=== PATIENT | female | born 1945 | race Hispanic/Latino ===

== ENCOUNTER → 2017-02-18 | Outpatient (CLI) | payer MEDICARE ==
[~2017-02-18] MED LIST: ALBUMIN (HUMAN) 25% 200 ML IV ONE; CICL34.6 TP; FERR-82 PO; FOLI1TAB15 PO; FURO40TA5 PO; LACT10SO9 PO; LEVO125T11 PO; LISI1TAB9 PO; OMEP40CA37 PO; PREG25 PO; PROP20TA7 PO; RIFA550T PO; SPIR100T3 PO; SULF500T8 PO
[2017-02-18 11:27] LABS: BASOPHILS % (AUTO) 1.8 % (0.0-5.0); EOSINOPHILS % (AUTO) 5.6 % (0.0-8.0); HEMATOCRIT 29.5 % (36-48); LYMPHOCYTES % (AUTO) 14.9 % (21.0-51.0); MEAN CORPUSCULAR HEMOGLOBIN 29.3 pg (27.0-33.0); MEAN CORPUSCULAR HGB CONC 33.7 g/dL (32.0-36.0); MEAN CORPUSCULAR VOLUME 86.7 fL (79-99); MONOCYTES % (AUTO) 18.3 % (3.0-13.0); NEUTROPHILS % (AUTO) 59.4 % (40.0-77.0); PLATELET COUNT (AUTO) 89 K/uL (130-400); RED CELL DISTRIBUTION WIDTH 16.9 % (11.0-15.5); WHITE BLOOD COUNT (AUTO) 4.4 K/uL (4.8-10.8)
[2017-02-18 11:35] LABS: INR 1.13 (0.85-1.15); PROTHROMBIN TIME 11.8 SEC (9.6-11.6)
[2017-02-18 11:39] LABS: ALBUMIN 2.5 g/dL (3.5-5.0); BILIRUBIN,TOTAL 0.9 mg/dL (0.2-1.0); CREATININE 1.8 mg/dL (0.5-1.5); POTASSIUM 5.2 mmol/L (3.5-5.1); TOTAL PROTEIN, SERUM 7.4 g/dL (6.0-8.3)
[2017-02-18 17:36] LABS: APPEARANCE BODY FLUID CLEAR (CLEAR); SPECIMENTYPE,BODY FLUID ASCITES
[2017-02-18 17:37] LABS: BODY FLUID RBC 58 /cu. mm.; BODY FLUID WBC 37 /cu. mm.; COLOR,BODY FLUID YELLOW (LT YELLOW); TOTAL VOLUME,BODY FLUID 9000 mL
[2017-02-18 18:59] LABS: BF LYMPHOCYTE 58 %; BF MESOTHELIAL 15 %
== END | disposition home or self-care (01) ==
LOC: RAH 10:42
PROVIDERS: ATTEND Internal Medicine Gastroenterology
DX: R18.8 Other ascites (principal); K72.90 Hepatic failure, unspecified without coma; K74.60 Unspecified cirrhosis of liver; I10 Essential (primary) hypertension; E03.9 Hypothyroidism, unspecified; E78.5 Hyperlipidemia, unspecified; M06.9 Rheumatoid arthritis, unspecified; M19.90 Unspecified osteoarthritis, unspecified site
CPT/HCPCS: 36415; 49083; 80053; 85025; 85610; 87071; 87205; 88108; 88305; 89051; P9046

== ENCOUNTER → 2017-02-22 | Outpatient (CLI) | payer MEDICARE ==
[~2017-02-22] MED LIST changes: -ALBUMIN (HUMAN) 25% 200 ML IV ONE
== END | disposition home or self-care (01) ==
LOC: RAH 08:29
PROVIDERS: ATTEND Internal Medicine Gastroenterology
DX: K74.60 Unspecified cirrhosis of liver (principal); K76.6 Portal hypertension; R18.8 Other ascites
CPT/HCPCS: 76700; 93975

== ENCOUNTER → 2017-02-24 | Outpatient (CLI) | payer MEDICARE ==
[~2017-02-24] MED LIST changes: +ALBUMIN (HUMAN) 25% 200 ML IV SCH
[2017-02-24 14:51] LABS: APPEARANCE BODY FLUID SLIGHTLY CLOUDY (CLEAR); COLOR,BODY FLUID LT YELLOW (LT YELLOW); SPECIMENTYPE,BODY FLUID ASCITES
[2017-02-24 14:52] LABS: BODY FLUID RBC 100 /cu. mm.; BODY FLUID WBC 104 /cu. mm.; TOTAL VOLUME,BODY FLUID 3000 mL
[2017-02-24 14:54] LABS: BF LYMPHOCYTE 30 %; BF MESOTHELIAL 2 %; BF MONOCYTE 55 %
== END ==
LOC: RAH 09:57
PROVIDERS: ATTEND Internal Medicine Gastroenterology
DX: R18.8 Other ascites (principal)
CPT/HCPCS: 49083; 87071; 87205; 89051; P9046

== ENCOUNTER → 2017-03-03 | Outpatient (CLI) | payer MEDICARE ==
[~2017-03-03] MED LIST changes: +ALBUMIN (HUMAN) 25% 200 ML IV ONE; -ALBUMIN (HUMAN) 25% 200 ML IV SCH
[2017-03-03 14:07] LABS: APPEARANCE BODY FLUID CLEAR (CLEAR); COLOR,BODY FLUID YELLOW (LT YELLOW); SPECIMENTYPE,BODY FLUID ASCITES; TOTAL VOLUME,BODY FLUID 4500 mL
[2017-03-03 14:08] LABS: BODY FLUID RBC 895 /cu. mm.; BODY FLUID WBC 81 /cu. mm.
[2017-03-03 14:11] LABS: BF LYMPHOCYTE 46 %; BF MESOTHELIAL 32 %
== END | disposition home or self-care (01) ==
LOC: RAH 09:26
PROVIDERS: ATTEND Internal Medicine Gastroenterology
DX: R18.8 Other ascites (principal)
CPT/HCPCS: 49083; 87071; 87205; 88108; 88305; 89051; P9046

== ENCOUNTER → 2017-03-17 | Outpatient (CLI) | payer MEDICARE ==
[~2017-03-17] MED LIST changes: -ALBUMIN (HUMAN) 25% 200 ML IV ONE; +ALBUMIN (HUMAN) 25% 200 ML IV SCH
[2017-03-17 08:54] LABS: HEMATOCRIT 28.5 % (36-48); MEAN CORPUSCULAR HEMOGLOBIN 30.6 pg (27.0-33.0); MEAN CORPUSCULAR HGB CONC 34.6 g/dL (32.0-36.0); MEAN CORPUSCULAR VOLUME 88.5 fL (79-99); PLATELET COUNT (AUTO) 70 K/uL (130-400); RED BLOOD CELL COUNT(AUTO) 3.22 MIL/uL (4.00-5.50); RED CELL DISTRIBUTION WIDTH 18.7 % (11.0-15.5)
[2017-03-17 09:06] LABS: INR 1.13 (0.85-1.15); PROTHROMBIN TIME 11.8 SEC (9.6-11.6)
[2017-03-17 09:09] LABS: ALBUMIN 2.8 g/dL (3.5-5.0); BILIRUBIN,TOTAL 0.8 mg/dL (0.2-1.0); CREATININE 2.4 mg/dL (0.5-1.5); TOTAL PROTEIN, SERUM 7.5 g/dL (6.0-8.3)
[2017-03-17 09:10] LABS: BASOPHILS % (MANUAL) 1 % (0-2); EOSINOPHILS % (MANUAL) 7 % (1-6); LYMPHOCYTES % (MANUAL) 19 % (22-44); MAN.DIFF COMMENT-IMPRESSION MANUAL DIFFERENTIAL; MONOCYTES % (MANUAL) 17 % (2-9); SEGMENTED NEUTROPHILS % 56 % (40-70)
[2017-03-17 13:10] LABS: APPEARANCE BODY FLUID CLEAR (CLEAR); COLOR,BODY FLUID YELLOW (LT YELLOW); SPECIMENTYPE,BODY FLUID ASCITES
[2017-03-17 13:17] LABS: BODY FLUID RBC 769 /cu. mm.; BODY FLUID WBC 115 /cu. mm.; TOTAL VOLUME,BODY FLUID 5000 mL
[2017-03-17 13:46] LABS: BF EOSINOPHIL 1 %; BF LYMPHOCYTE 20 %; BF MESOTHELIAL 59 %; BF MONOCYTE 13 %
== END | disposition home or self-care (01) ==
LOC: RAH 08:15
PROVIDERS: ATTEND Internal Medicine Gastroenterology
DX: R18.8 Other ascites (principal)
CPT/HCPCS: 36415; 49083; 80053; 85025; 85610; 87071; 87205; 88108; 88305; 89051; P9046

== ENCOUNTER → 2017-04-13 | Outpatient (CLI) | payer MEDICARE ==
[~2017-04-13] MED LIST changes: -SPIR100T3 PO; +SPIR100T5 PO
[2017-04-13 09:11] LABS: BASOPHILS % (AUTO) 0.9 % (0.0-5.0); EOSINOPHILS % (AUTO) 2.8 % (0.0-8.0); LYMPHOCYTES % (AUTO) 11.8 % (21.0-51.0); MEAN CORPUSCULAR HEMOGLOBIN 30.7 pg (27.0-33.0); MEAN CORPUSCULAR HGB CONC 34.4 g/dL (32.0-36.0); MEAN CORPUSCULAR VOLUME 89.2 fL (79-99); MONOCYTES % (AUTO) 15.7 % (3.0-13.0); NEUTROPHILS % (AUTO) 68.8 % (40.0-77.0); PLATELET COUNT (AUTO) 81 K/uL (130-400); RED BLOOD CELL COUNT(AUTO) 3.14 MIL/uL (4.00-5.50); RED CELL DISTRIBUTION WIDTH 18.2 % (11.0-15.5); WHITE BLOOD COUNT (AUTO) 6.1 K/uL (4.8-10.8)
[2017-04-13 09:24] LABS: ALBUMIN 2.8 g/dL (3.5-5.0); BILIRUBIN,TOTAL 1.2 mg/dL (0.2-1.0); CREATININE 2.1 mg/dL (0.5-1.5); POTASSIUM 4.3 mmol/L (3.5-5.1); TOTAL PROTEIN, SERUM 8.1 g/dL (6.0-8.3)
[2017-04-13 09:25] LABS: INR 1.15 (0.85-1.15)
[2017-04-13 12:48] LABS: APPEARANCE BODY FLUID CLEAR (CLEAR); COLOR,BODY FLUID YELLOW (LT YELLOW); SPECIMENTYPE,BODY FLUID ASCITES; TOTAL VOLUME,BODY FLUID 7000 mL
[2017-04-13 12:49] LABS: BODY FLUID RBC 158 /cu. mm.; BODY FLUID WBC 128 /cu. mm.
[2017-04-13 13:10] LABS: BF BASOPHIL 1 %; BF LYMPHOCYTE 15 %; BF MESOTHELIAL 58 %; BF MONOCYTE 16 %
== END | disposition home or self-care (01) ==
LOC: RAH 08:55
PROVIDERS: ATTEND Internal Medicine Gastroenterology
DX: R18.8 Other ascites (principal)
CPT/HCPCS: 36415; 49083; 80053; 85025; 85610; 87071; 87205; 88108; 88305; 89051; P9046

== ENCOUNTER → 2017-05-05 | Outpatient (CLI) | payer MEDICARE ==
[~2017-05-05] MED LIST changes: +SPIR100T3 PO; -SPIR100T5 PO
[2017-05-05 13:10] LABS: APPEARANCE BODY FLUID CLEAR (CLEAR); BODY FLUID WBC 101 /cu. mm.; COLOR,BODY FLUID YELLOW (LT YELLOW); SPECIMENTYPE,BODY FLUID ASCITES
[2017-05-05 13:11] LABS: BODY FLUID RBC 204 /cu. mm.
[2017-05-05 13:13] LABS: BF LYMPHOCYTE 22 %; BF MESOTHELIAL 54 %; BF MONOCYTE 23 %
[2017-05-05 13:17] LABS: TOTAL VOLUME,BODY FLUID 6000 mL
== END | disposition home or self-care (01) ==
LOC: RAH 07:42
PROVIDERS: ATTEND Internal Medicine Gastroenterology
DX: R18.8 Other ascites (principal)
CPT/HCPCS: 49083; 87071; 87205; 89051; P9046

== ENCOUNTER 2017-05-09 00:49 | Emergency (ER) | payer MEDICARE ==
[~2017-05-09 00:49] MED LIST changes: -ALBUMIN (HUMAN) 25% 200 ML IV SCH; -FOLI1TAB15 PO; -LACT10SO9 PO; -PROP20TA7 PO
[2017-05-09] MEDS ORDERED: TRAMADOL HCL 50 MG TABLET ONE (03:19)
== END 2017-05-09 03:31 | disposition home or self-care (01) ==
LOC: EDH 00:49
DX: S80.02XA Contusion of left knee, initial encounter (principal); S80.01XA Contusion of right knee, initial encounter; M19.90 Unspecified osteoarthritis, unspecified site; I10 Essential (primary) hypertension; K74.60 Unspecified cirrhosis of liver; W18.39XA Other fall on same level, initial encounter; Z79.899 Other long term (current) drug therapy; Y93.89 Activity, other specified; Y92.098 Other place in other non-institutional residence as the place of occurrence of the external cause; Y99.8 Other external cause status
CPT/HCPCS: 73562

== ENCOUNTER → 2017-05-27 | Outpatient (CLI) | payer MEDICARE ==
[~2017-05-27] MED LIST changes: +ALBUMIN (HUMAN) 25% 200 ML IV SCH; +FOLI1TAB15 PO; +LACT10SO9 PO; +ONDANSETRON HCL MDV 20ML 2 MG/ML VIAL ONE; +PROP20TA7 PO; -SPIR100T3 PO; +SPIR100T5 PO
[2017-05-27 09:22] LABS: BASOPHILS % (AUTO) 1.6 % (0.0-5.0); EOSINOPHILS % (AUTO) 4.2 % (0.0-8.0); LYMPHOCYTES % (AUTO) 11.9 % (21.0-51.0); MEAN CORPUSCULAR HEMOGLOBIN 31.5 pg (27.0-33.0); MEAN CORPUSCULAR HGB CONC 34.9 g/dL (32.0-36.0); MEAN CORPUSCULAR VOLUME 90.3 fL (79-99); MONOCYTES % (AUTO) 14.4 % (3.0-13.0); NEUTROPHILS % (AUTO) 67.9 % (40.0-77.0); NUCLEATED RED BLOOD CELLS 0.1 % (0.0-0.19); PLATELET COUNT (AUTO) 87 K/uL (130-400); RED BLOOD CELL COUNT(AUTO) 2.99 MIL/uL (4.00-5.50); RED CELL DISTRIBUTION WIDTH 15.7 % (11.0-15.5); WHITE BLOOD COUNT (AUTO) 4.5 K/uL (4.8-10.8)
[2017-05-27 09:36] LABS: INR 1.13 (0.85-1.15); PROTHROMBIN TIME 11.8 SEC (9.6-11.6)
[2017-05-27 10:09] LABS: ALBUMIN 2.6 g/dL (3.5-5.0); BILIRUBIN,TOTAL 0.8 mg/dL (0.2-1.0); CREATININE 2.1 mg/dL (0.5-1.5); POTASSIUM 4.4 mmol/L (3.5-5.1); TOTAL PROTEIN, SERUM 7.7 g/dL (6.0-8.3)
[2017-05-27 13:09] LABS: APPEARANCE BODY FLUID SLIGHTLY CLOUDY (CLEAR); COLOR,BODY FLUID LT YELLOW (LT YELLOW); SPECIMENTYPE,BODY FLUID ASCITES; TOTAL VOLUME,BODY FLUID 7500 mL
[2017-05-27 13:10] LABS: BODY FLUID WBC 150 /cu. mm.
[2017-05-27 13:11] LABS: BODY FLUID RBC 150 /cu. mm.
[2017-05-27 13:14] LABS: BF LYMPHOCYTE 40 %; BF MESOTHELIAL 1 %; BF MONOCYTE 2 %
== END | disposition home or self-care (01) ==
LOC: RAH 08:43
PROVIDERS: ATTEND Internal Medicine Gastroenterology
DX: R18.8 Other ascites (principal)
CPT/HCPCS: 36415; 49083; 80053; 85025; 85610; 87071; 87205; 88108; 88305; 89051; P9046

== ENCOUNTER → 2017-06-16 | Outpatient (CLI) | payer MEDICARE ==
[~2017-06-16] MED LIST changes: -ALBUMIN (HUMAN) 25% 200 ML IV SCH; -ONDANSETRON HCL MDV 20ML 2 MG/ML VIAL ONE
== END | disposition home or self-care (01) ==
LOC: RAH 12:29
PROVIDERS: ATTEND Internal Medicine Gastroenterology
DX: M47.895 Other spondylosis, thoracolumbar region (principal); M41.84 Other forms of scoliosis, thoracic region; R18.8 Other ascites
CPT/HCPCS: 71046

== ENCOUNTER 2017-06-30 20:55 | Inpatient (IN) | payer MEDICARE ==
[~2017-06-30] VITALS: Ht 160 cm; Wt 74.3 kg
[~2017-06-30 20:55] MED LIST changes: -FOLI1TAB15 PO; -LACT10SO9 PO; -PROP20TA7 PO
[2017-06-30 21:26] LABS: BASOPHILS % (AUTO) 1.7 % (0.0-5.0); HEMATOCRIT 30.6 % (36-48); LYMPHOCYTES % (AUTO) 19.9 % (21.0-51.0); MEAN CORPUSCULAR HEMOGLOBIN 29.6 pg (27.0-33.0); MEAN CORPUSCULAR HGB CONC 34.1 g/dL (32.0-36.0); MEAN CORPUSCULAR VOLUME 86.7 fL (79-99); MONOCYTES % (AUTO) 11.7 % (3.0-13.0); NEUTROPHILS % (AUTO) 63.7 % (40.0-77.0); PLATELET COUNT (AUTO) 186 K/uL (130-400); RED BLOOD CELL COUNT(AUTO) 3.53 MIL/uL (4.00-5.50); RED CELL DISTRIBUTION WIDTH 14.9 % (11.0-15.5); WHITE BLOOD COUNT (AUTO) 5.3 K/uL (4.8-10.8)
[2017-06-30 21:33] LABS: CREATININE 3.7 mg/dL (0.5-1.5); POTASSIUM 4.2 mmol/L (3.5-5.1)
[2017-06-30 21:37] LABS: ALBUMIN 2.4 g/dL (3.5-5.0); BILIRUBIN,TOTAL 0.8 mg/dL (0.2-1.0); TOTAL PROTEIN, SERUM 7.6 g/dL (6.0-8.3)
[2017-06-30] MEDS ORDERED: LACTULOSE 20 GM/30 ML UDCUP ONE (21:54)
[2017-06-30 22:22] LABS: INR 1.14 (0.85-1.15); PARTIAL THROMBOPLASTIN TIME 30.5 SEC (26.3-35.5); PROTHROMBIN TIME 11.9 SEC (9.6-11.6)
[2017-06-30 22:27] LABS: CREATINE KINASE MB 0.6 ng/mL (0.5-3.6)
[2017-06-30 23:16] LABS: BILIRUBIN,URINE Negative (NEGATIVE); GLUCOSE, URINE (UA) Negative (NEGATIVE); KETONES,URINE Negative (NEGATIVE); LEUKOCYTE ESTERASE ,URINE Large (NEGATIVE); NITRATE,URINE Negative (NEGATIVE); OCCULT BLOOD,URINE Small (NEGATIVE); PROTEIN,URINE Negative (NEGATIVE); UROBILINOGEN,URINE 0.2 mg/dL (0.2-1.0)
[2017-06-30 23:17] LABS: APPEARANCE,URINE CLOUDY (CLEAR); COLOR,URINE YELLOW (YELLOW)
[2017-06-30] MEDS ORDERED: SODIUM CHLORIDE 0.9% 250 ML IV ONE (23:19)
[2017-06-30] MEDS ORDERED: ONDANSETRON HCL MDV 20ML 2 MG/ML VIAL ONE (23:19)
[2017-06-30 23:24] LABS: BACTERIA,URINE Many /HPF (None Seen); WBC,URINE 51-100 /HPF (0-1)
[2017-06-30 23:25] LABS: AMORPHOUS SEDIMENT,UR Moderate /LPF (None Seen)
[2017-06-30] MEDS: SODIUM CHLORIDE 0.9% 1000ML 1,000 ML IV SCH (23:30)
[2017-06-30 23:31] LABS: AMPHET/METH SCREEN,URINE NEGATIVE (NEGATIVE); BARBITURATE SCREEN, URINE NEGATIVE (NEGATIVE); BENZODIAZEPINES SCREEN,URINE NEGATIVE (NEGATIVE); CANNABINOID SCREEN,URINE NEGATIVE (NEGATIVE); COCAINE SCREEN,URINE NEGATIVE (NEGATIVE); OPIATE SCREEN,URINE NEGATIVE (NEGATIVE); PHENCYCLIDINE SCREEN,URINE NEGATIVE (NEGATIVE)
[2017-07-01] VITALS (37 sets, daily range): BP systolic 72–140; BP diastolic 31–96
[2017-07-01] MEDS ORDERED: CEFTRIAXONE 1GM/D5W 50ML 50 ML IV SCH (00:30)
[2017-07-01] MEDS: HEPARIN SODIUM 5000UNIT/ML 1ML VIAL SQ SCH ×2 (00:30→15:43)
[2017-07-01] MEDS ORDERED: LIDOCAINE HCL-MPF 1% 2ML VIAL IVP PRN (00:30)
[2017-07-01] MEDS ORDERED: POTASSIUM CHLORIDE 20MEQ/100ML 100 ML IV PRN (00:30)
[2017-07-01] MEDS ORDERED: POTASSIUM CHLORIDE 10% ELIXIR 20 MEQ/15 ML UDCUP PO PRN (00:30)
[2017-07-01] MEDS: CEFTRIAXONE SODIUM 1 GM IVP SCH (02:00)
[2017-07-01] MEDS ORDERED: LACTULOSE 20 GM/30 ML UDCUP ONE (04:48)
[2017-07-01] MEDS ORDERED: HEPARIN SODIUM 5000UNIT/ML 1ML VIAL ONE (04:48)
[2017-07-01] MEDS: LACTULOSE 20 GM/30 ML UDCUP PO SCH ×4 (06:00→18:36)
[2017-07-01 06:07] LABS: BASOPHILS % (AUTO) 1.3 % (0.0-5.0); EOSINOPHILS % (AUTO) 1.3 % (0.0-8.0); HEMATOCRIT 29.1 % (36-48); LYMPHOCYTES % (AUTO) 19.2 % (21.0-51.0); MEAN CORPUSCULAR HEMOGLOBIN 30.5 pg (27.0-33.0); MEAN CORPUSCULAR VOLUME 87.2 fL (79-99); NEUTROPHILS % (AUTO) 66.2 % (40.0-77.0); PLATELET COUNT (AUTO) 142 K/uL (130-400); RED BLOOD CELL COUNT(AUTO) 3.34 MIL/uL (4.00-5.50); RED CELL DISTRIBUTION WIDTH 15.2 % (11.0-15.5); WHITE BLOOD COUNT (AUTO) 5.7 K/uL (4.8-10.8)
[2017-07-01 06:27] LABS: ALBUMIN 2.2 g/dL (3.5-5.0); BILIRUBIN,TOTAL 0.8 mg/dL (0.2-1.0); POTASSIUM 4.2 mmol/L (3.5-5.1); TOTAL PROTEIN, SERUM 6.9 g/dL (6.0-8.3)
[2017-07-01] MEDS ORDERED: CEFTRIAXONE SODIUM 1 GM ONE (07:36)
[2017-07-01] MEDS ORDERED: SODIUM CHLORIDE 0.9% 1000ML 1,000 ML IV ONE (07:36)
[2017-07-01] MEDS ORDERED: FAMOTIDINE 20MG TAB 20 MG TAB ONE (07:36)
[2017-07-01] MEDS ORDERED: SODIUM CHLORIDE 0.9% 50 ML IV ONE (07:37)
[2017-07-01] MEDS ORDERED: NOREPINEPHRINE BITARTRATE 1 MG/1 ML ML IV ONE (08:53)
[2017-07-01] MEDS ORDERED: SODIUM CHLORIDE 0.9% 250 ML IV ONE (08:53)
[2017-07-01] MEDS: FAMOTIDINE 20MG TAB 20 MG TAB PO SCH (09:00)
[2017-07-01] MEDS ORDERED: PROP20TA7 PO (11:31)
[2017-07-01] MEDS ORDERED: LACT10SO9 PO (11:31)
[2017-07-01] MEDS ORDERED: FOLI1TAB15 PO (11:31)
[2017-07-01] MEDS: SODIUM CHLORIDE 0.9% 1000ML 1,000 ML IV SCH ×2 (13:46→20:50)
[2017-07-01] MEDS ORDERED: NOREPINEPHRINE 4MG/NS 250ML 250 ML IV SCH ×2 (14:15→16:00)
[2017-07-01] MEDS: MIDODRINE HCL 5 MG TABLET PO SCH ×2 (15:26→20:13)
[2017-07-01 15:59] LABS: CREATININE,URINE RANDOM 126 mg/dL (30-135); SODIUM,URINE RANDOM 21 mmol/l (40-220)
[2017-07-01] MEDS ORDERED: LACTATED RINGERS 1000ML IV PRN (16:00)
[2017-07-01] MEDS ORDERED: ONDANSETRON HCL MDV 20ML 2 MG/ML VIAL ONE (20:23)
[2017-07-01] MEDS: ONDANSETRON HCL 4 MG/2 ML VIAL IVP PRN (20:24)
[2017-07-01] MEDS: ALBUMIN (HUMAN) 25% 50 ML IV SCH (22:13)
[2017-07-02] VITALS (44 sets, daily range): BP systolic 78–159; BP diastolic 37–80
[2017-07-02] MEDS: HEPARIN SODIUM 5000UNIT/ML 1ML VIAL SQ SCH ×2 (00:25→12:30)
[2017-07-02] MEDS: LACTULOSE 20 GM/30 ML UDCUP PO SCH ×4 (00:26→18:06)
[2017-07-02] MEDS: CEFTRIAXONE SODIUM 1 GM IVP SCH (02:40)
[2017-07-02 03:45] LABS: BASOPHILS % (AUTO) 1.4 % (0.0-5.0); EOSINOPHILS % (AUTO) 2.7 % (0.0-8.0); HEMATOCRIT 28.7 % (36-48); LYMPHOCYTES % (AUTO) 17.4 % (21.0-51.0); MEAN CORPUSCULAR HEMOGLOBIN 29.4 pg (27.0-33.0); MEAN CORPUSCULAR HGB CONC 33.7 g/dL (32.0-36.0); MEAN CORPUSCULAR VOLUME 87.2 fL (79-99); MONOCYTES % (AUTO) 11.6 % (3.0-13.0); NEUTROPHILS % (AUTO) 66.9 % (40.0-77.0); NUCLEATED RED BLOOD CELLS 0.1 % (0.0-0.19); PLATELET COUNT (AUTO) 139 K/uL (130-400); RED BLOOD CELL COUNT(AUTO) 3.29 MIL/uL (4.00-5.50); RED CELL DISTRIBUTION WIDTH 14.8 % (11.0-15.5); WHITE BLOOD COUNT (AUTO) 5.8 K/uL (4.8-10.8)
[2017-07-02 04:17] LABS: ALBUMIN 2.3 g/dL (3.5-5.0); BILIRUBIN,TOTAL 0.7 mg/dL (0.2-1.0); CREATININE 3.7 mg/dL (0.5-1.5); MAGNESIUM 2.4 mg/dL (1.80-2.40); PHOSPHORUS 4.7 mg/dL (2.5-4.9); POTASSIUM 3.8 mmol/L (3.5-5.1); THYROID STIMULATING HORMONE 69.23 uIU/mL (0.36-3.74); TOTAL PROTEIN, SERUM 6.6 g/dL (6.0-8.3); URIC ACID 12.6 mg/dL (2.6-7.2)
[2017-07-02] MEDS: ALBUMIN (HUMAN) 25% 50 ML IV SCH ×3 (05:55→21:30)
[2017-07-02] MEDS ORDERED: ONDANSETRON HCL MDV 20ML 2 MG/ML VIAL ONE ×2 (06:04→14:08)
[2017-07-02] MEDS: FAMOTIDINE 20MG TAB 20 MG TAB PO SCH (08:42)
[2017-07-02] MEDS: MIDODRINE HCL 5 MG TABLET PO SCH ×3 (08:46→21:27)
[2017-07-02] MEDS: FOLIC ACID/VITAMIN B COMP W-C 1 MG CAPSULE PO SCH (08:46)
[2017-07-02] MEDS: THIAMINE HCL 100 MG/ML 2ML VIAL IVP SCH (08:47)
[2017-07-02] MEDS: SODIUM CHLORIDE 0.9% 1000ML 1,000 ML IV SCH ×2 (08:55→23:33)
[2017-07-02 11:34] LABS: INR 1.27 (0.85-1.15); PROTHROMBIN TIME 13.3 SEC (9.6-11.6)
[2017-07-02] MEDS: ONDANSETRON HCL 4 MG/2 ML VIAL IVP PRN (14:45)
[2017-07-02 15:24] LABS: APPEARANCE BODY FLUID CLEAR (CLEAR); SPECIMENTYPE,BODY FLUID PARACENTESIS
[2017-07-02 15:25] LABS: COLOR,BODY FLUID LT YELLOW (LT YELLOW); TOTAL VOLUME,BODY FLUID 8000 mL
[2017-07-02 15:38] LABS: BODY FLUID RBC 200 /cu. mm.; BODY FLUID WBC 49 /cu. mm.
[2017-07-02 15:42] LABS: ALBUMIN,BODY FLUID < 0.6 g/dL
[2017-07-02 15:58] LABS: BF LYMPHOCYTE 26 %; BF MONOCYTE 67 %
[2017-07-02] MEDS: RIFAXIMIN 550 MG TABLET PO SCH (21:27)
[2017-07-03] VITALS (21 sets, daily range): BP systolic 86–133; BP diastolic 40–75
[2017-07-03] MEDS: LACTULOSE 20 GM/30 ML UDCUP PO SCH ×4 (00:01→18:00)
[2017-07-03] MEDS: HEPARIN SODIUM 5000UNIT/ML 1ML VIAL SQ SCH ×2 (00:03→12:27)
[2017-07-03] MEDS: CEFTRIAXONE SODIUM 1 GM IVP SCH (02:22)
[2017-07-03 05:39] LABS: BASOPHILS % (AUTO) 1.1 % (0.0-5.0); LYMPHOCYTES % (AUTO) 10.7 % (21.0-51.0); MEAN CORPUSCULAR HEMOGLOBIN 30.6 pg (27.0-33.0); MEAN CORPUSCULAR HGB CONC 35.3 g/dL (32.0-36.0); MEAN CORPUSCULAR VOLUME 86.8 fL (79-99); MONOCYTES % (AUTO) 10.4 % (3.0-13.0); NEUTROPHILS % (AUTO) 75.8 % (40.0-77.0); PLATELET COUNT (AUTO) 116 K/uL (130-400); RED BLOOD CELL COUNT(AUTO) 3.23 MIL/uL (4.00-5.50); RED CELL DISTRIBUTION WIDTH 15.2 % (11.0-15.5); WHITE BLOOD COUNT (AUTO) 6.7 K/uL (4.8-10.8)
[2017-07-03 05:53] LABS: ALBUMIN 2.9 g/dL (3.5-5.0); BILIRUBIN,TOTAL 0.7 mg/dL (0.2-1.0); CREATININE 3.1 mg/dL (0.5-1.5); POTASSIUM 3.7 mmol/L (3.5-5.1); TOTAL PROTEIN, SERUM 6.9 g/dL (6.0-8.3)
[2017-07-03] MEDS: ALBUMIN (HUMAN) 25% 50 ML IV SCH ×2 (06:26→14:12)
[2017-07-03] MEDS: FAMOTIDINE 20MG TAB 20 MG TAB PO SCH (08:17)
[2017-07-03] MEDS: FOLIC ACID/VITAMIN B COMP W-C 1 MG CAPSULE PO SCH (08:17)
[2017-07-03] MEDS: THIAMINE HCL 100 MG/ML 2ML VIAL IVP SCH (08:17)
[2017-07-03] MEDS: FERROUS SULFATE 325 MG TABLET.DR PO SCH (08:17)
[2017-07-03] MEDS: MIDODRINE HCL 5 MG TABLET PO SCH ×3 (08:17→21:19)
[2017-07-03] MEDS: LEVOTHYROXINE 150 MCG TABLET PO SCH (08:17)
[2017-07-03] MEDS: RIFAXIMIN 550 MG TABLET PO SCH ×2 (09:36→21:19)
[2017-07-03] MEDS ORDERED: MEROPENEM 500MG+NS 50ML 50 ML IV SCH (14:00)
[2017-07-03] MEDS: MEROPENEM 500 MG VIAL IVP SCH ×2 (14:12→21:19)
[2017-07-03] MEDS: SODIUM CHLORIDE 0.9% 1000ML 1,000 ML IV SCH (14:12)
[2017-07-04] VITALS (11 sets, daily range): BP systolic 93–158; BP diastolic 38–70
[2017-07-04] MEDS: LACTULOSE 20 GM/30 ML UDCUP PO SCH ×4 (00:58→18:19)
[2017-07-04] MEDS: CEFTRIAXONE SODIUM 1 GM IVP SCH (00:59)
[2017-07-04] MEDS: HEPARIN SODIUM 5000UNIT/ML 1ML VIAL SQ SCH ×2 (01:00→12:13)
[2017-07-04] MEDS: SODIUM CHLORIDE 0.9% 1000ML 1,000 ML IV SCH ×2 (02:34→20:50)
[2017-07-04 05:33] LABS: HEMATOCRIT 25.5 % (36-48); MEAN CORPUSCULAR HEMOGLOBIN 29.6 pg (27.0-33.0); MEAN CORPUSCULAR HGB CONC 33.8 g/dL (32.0-36.0); MEAN CORPUSCULAR VOLUME 87.6 fL (79-99); PLATELET COUNT (AUTO) 66 K/uL (130-400); RED BLOOD CELL COUNT(AUTO) 2.92 MIL/uL (4.00-5.50); RED CELL DISTRIBUTION WIDTH 15.1 % (11.0-15.5); WHITE BLOOD COUNT (AUTO) 3.4 K/uL (4.8-10.8)
[2017-07-04 05:39] LABS: CREATININE 2.5 mg/dL (0.5-1.5); POTASSIUM 3.9 mmol/L (3.5-5.1)
[2017-07-04] MEDS: LEVOTHYROXINE 150 MCG TABLET PO SCH (06:37)
[2017-07-04] MEDS: MEROPENEM 500 MG VIAL IVP SCH ×3 (06:37→21:15)
[2017-07-04] MEDS: THIAMINE HCL 100 MG/ML 2ML VIAL IVP SCH (08:41)
[2017-07-04] MEDS: FAMOTIDINE 20MG TAB 20 MG TAB PO SCH (08:42)
[2017-07-04] MEDS: FERROUS SULFATE 325 MG TABLET.DR PO SCH (08:42)
[2017-07-04] MEDS: FOLIC ACID/VITAMIN B COMP W-C 1 MG CAPSULE PO SCH (08:42)
[2017-07-04] MEDS: MIDODRINE HCL 5 MG TABLET PO SCH ×3 (08:42→21:15)
[2017-07-04] MEDS: RIFAXIMIN 550 MG TABLET PO SCH ×2 (09:39→21:00)
[2017-07-04] MEDS: SODIUM BICARBONATE 650 MG TAB PO SCH (21:15)
[2017-07-05] MEDS: LACTULOSE 20 GM/30 ML UDCUP PO SCH ×5 (00:01→23:53)
[2017-07-05] MEDS: CEFTRIAXONE SODIUM 1 GM IVP SCH ×2 (00:02→23:53)
[2017-07-05] MEDS: HEPARIN SODIUM 5000UNIT/ML 1ML VIAL SQ SCH (00:07)
[2017-07-05 00:32] VITALS: BP 124/63
[2017-07-05 04:07] VITALS: BP 119/59
[2017-07-05] MEDS: LEVOTHYROXINE 150 MCG TABLET PO SCH (05:27)
[2017-07-05] MEDS: MEROPENEM 500 MG VIAL IVP SCH (05:27)
[2017-07-05 05:46] LABS: BASOPHILS % (AUTO) 1.1 % (0.0-5.0); EOSINOPHILS % (AUTO) 2.3 % (0.0-8.0); HEMATOCRIT 24.3 % (36-48); LYMPHOCYTES % (AUTO) 12.5 % (21.0-51.0); MEAN CORPUSCULAR HEMOGLOBIN 30.6 pg (27.0-33.0); MEAN CORPUSCULAR HGB CONC 34.8 g/dL (32.0-36.0); MEAN CORPUSCULAR VOLUME 87.9 fL (79-99); MONOCYTES % (AUTO) 13.1 % (3.0-13.0); NUCLEATED RED BLOOD CELLS 0.1 % (0.0-0.19); PLATELET COUNT (AUTO) 67 K/uL (130-400); RED BLOOD CELL COUNT(AUTO) 2.76 MIL/uL (4.00-5.50); RED CELL DISTRIBUTION WIDTH 15.5 % (11.0-15.5)
[2017-07-05 06:03] LABS: CREATININE 1.9 mg/dL (0.5-1.5); POTASSIUM 3.7 mmol/L (3.5-5.1)
[2017-07-05 06:35] LABS: % IRON SATURATION 52.7 % (22-44)
[2017-07-05 07:47] LABS: BASOPHILS % (MANUAL) 2 % (0-2); EOSINOPHILS % (MANUAL) 3 % (1-6); LYMPHOCYTES % (MANUAL) 8 % (22-44); MAN.DIFF COMMENT-IMPRESSION MANUAL DIFFERENTIAL; MONOCYTES % (MANUAL) 6 % (2-9); PLATELET MORPHOLOGY COMMENT DECREASED; SEGMENTED NEUTROPHILS % 81 % (40-70)
[2017-07-05 09:25] VITALS: BP 127/61
[2017-07-05] MEDS: SODIUM CHLORIDE 0.9% 1000ML 1,000 ML IV SCH ×2 (10:51→23:53)
[2017-07-05] MEDS: MIDODRINE HCL 5 MG TABLET PO SCH ×3 (10:52→20:22)
[2017-07-05] MEDS: FERROUS SULFATE 325 MG TABLET.DR PO SCH (10:52)
[2017-07-05] MEDS: FOLIC ACID/VITAMIN B COMP W-C 1 MG CAPSULE PO SCH (10:52)
[2017-07-05] MEDS: RIFAXIMIN 550 MG TABLET PO SCH ×2 (10:52→20:23)
[2017-07-05] MEDS: THIAMINE HCL 100 MG/ML 2ML VIAL IVP SCH (10:52)
[2017-07-05] MEDS: SODIUM BICARBONATE 650 MG TAB PO SCH ×2 (10:52→20:22)
[2017-07-05] MEDS: FAMOTIDINE 20MG TAB 20 MG TAB PO SCH (10:52)
[2017-07-05 12:39] VITALS: BP 137/80
[2017-07-05 16:00] VITALS: BP 111/73
[2017-07-05 20:00] VITALS: BP 117/68
[2017-07-06] VITALS: BP 152/80
[2017-07-06 04:00] VITALS: BP 133/66
[2017-07-06] MEDS: LACTULOSE 20 GM/30 ML UDCUP PO SCH ×5 (05:29→22:06)
[2017-07-06] MEDS: LEVOTHYROXINE 150 MCG TABLET PO SCH (05:29)
[2017-07-06 05:50] LABS: BASOPHILS % (AUTO) 1.1 % (0.0-5.0); EOSINOPHILS % (AUTO) 3.4 % (0.0-8.0); HEMATOCRIT 25.7 % (36-48); LYMPHOCYTES % (AUTO) 12.5 % (21.0-51.0); MEAN CORPUSCULAR HEMOGLOBIN 29.5 pg (27.0-33.0); MEAN CORPUSCULAR HGB CONC 33.4 g/dL (32.0-36.0); MEAN CORPUSCULAR VOLUME 88.5 fL (79-99); MONOCYTES % (AUTO) 15.3 % (3.0-13.0); NEUTROPHILS % (AUTO) 67.7 % (40.0-77.0); PLATELET COUNT (AUTO) 67 K/uL (130-400); RED BLOOD CELL COUNT(AUTO) 2.91 MIL/uL (4.00-5.50); RED CELL DISTRIBUTION WIDTH 15.5 % (11.0-15.5)
[2017-07-06 06:18] LABS: CREATININE 1.8 mg/dL (0.5-1.5); POTASSIUM 3.6 mmol/L (3.5-5.1)
[2017-07-06] MEDS: POTASSIUM CHLORIDE 20 MEQ ERTAB PO PRN ×2 (06:41→18:31)
[2017-07-06 08:00] VITALS: BP 131/67
[2017-07-06 09:56] LABS: INR 1.28 (0.85-1.15); PARTIAL THROMBOPLASTIN TIME 35.2 SEC (26.3-35.5); PROTHROMBIN TIME 13.4 SEC (9.6-11.6)
[2017-07-06] MEDS ORDERED: IPRATROPIUM/ALBUTEROL SULFATE 3 ML SOLUTION IH SCH (10:00)
[2017-07-06] MEDS ORDERED: LIDOCAINE HCL 1% 20 ML VIAL ONE (11:04)
[2017-07-06] MEDS: FOLIC ACID/VITAMIN B COMP W-C 1 MG CAPSULE PO SCH (11:44)
[2017-07-06] MEDS: FERROUS SULFATE 325 MG TABLET.DR PO SCH (11:44)
[2017-07-06] MEDS: FAMOTIDINE 20MG TAB 20 MG TAB PO SCH (11:44)
[2017-07-06] MEDS: THIAMINE HCL 100 MG/ML 2ML VIAL IVP SCH (11:44)
[2017-07-06] MEDS: RIFAXIMIN 550 MG TABLET PO SCH ×2 (11:44→21:07)
[2017-07-06] MEDS: MIDODRINE HCL 5 MG TABLET PO SCH ×3 (11:44→21:00)
[2017-07-06] MEDS: SODIUM BICARBONATE 650 MG TAB PO SCH ×2 (11:44→21:07)
[2017-07-06 12:00] VITALS: BP 129/70
[2017-07-06 16:00] VITALS: BP 141/71
[2017-07-06] MEDS ORDERED: IPRATROPIUM/ALBUTEROL SULFATE 3 ML SOLUTION IH PRN (18:00)
[2017-07-06] MEDS: ONDANSETRON HCL 4 MG/2 ML VIAL IVP PRN (18:31)
[2017-07-06 19:37] VITALS: BP 179/61
[2017-07-07] VITALS (10 sets, daily range): BP systolic 112–146; BP diastolic 53–84
[2017-07-07] MEDS: LACTULOSE 20 GM/30 ML UDCUP PO SCH ×5 (01:55→18:00)
[2017-07-07] MEDS: CEFTRIAXONE SODIUM 1 GM IVP SCH (01:55)
[2017-07-07 04:10] LABS: HEMATOCRIT 27.1 % (36-48); MEAN CORPUSCULAR HEMOGLOBIN 30.6 pg (27.0-33.0); MEAN CORPUSCULAR HGB CONC 34.8 g/dL (32.0-36.0); MEAN CORPUSCULAR VOLUME 88.1 fL (79-99); PLATELET COUNT (AUTO) 73 K/uL (130-400); RED BLOOD CELL COUNT(AUTO) 3.07 MIL/uL (4.00-5.50); RED CELL DISTRIBUTION WIDTH 15.6 % (11.0-15.5); WHITE BLOOD COUNT (AUTO) 7.6 K/uL (4.8-10.8)
[2017-07-07 04:32] LABS: POTASSIUM 4.1 mmol/L (3.5-5.1)
[2017-07-07] MEDS: LEVOTHYROXINE 150 MCG TABLET PO SCH (05:28)
[2017-07-07] MEDS ORDERED: ALBUMIN (HUMAN) 25% 100 ML IV SCH (09:30)
[2017-07-07] MEDS: SODIUM BICARBONATE 650 MG TAB PO SCH (10:27)
[2017-07-07] MEDS: FOLIC ACID/VITAMIN B COMP W-C 1 MG CAPSULE PO SCH (10:27)
[2017-07-07] MEDS: RIFAXIMIN 550 MG TABLET PO SCH (10:28)
[2017-07-07] MEDS: MIDODRINE HCL 5 MG TABLET PO SCH ×2 (10:28→16:36)
[2017-07-07] MEDS: FERROUS SULFATE 325 MG TABLET.DR PO SCH (10:28)
[2017-07-07] MEDS: THIAMINE HCL 100 MG/ML 2ML VIAL IVP SCH (10:28)
[2017-07-07] MEDS: FAMOTIDINE 20MG TAB 20 MG TAB PO SCH (10:28)
[2017-07-07] MEDS: ONDANSETRON HCL 4 MG/2 ML VIAL IVP PRN (12:21)
[2017-07-07] MEDS ORDERED: LIDOCAINE HCL 1% 20 ML VIAL ONE (15:32)
[2017-07-07] MEDS ORDERED: ALBUMIN (HUMAN) 25% 200 ML IV ONE (16:00)
[2017-07-07 16:57] LABS: APPEARANCE BODY FLUID SLIGHTLY CLOUDY (CLEAR); COLOR,BODY FLUID LT YELLOW (LT YELLOW); SPECIMENTYPE,BODY FLUID ASCITES; TOTAL VOLUME,BODY FLUID 8300 mL
[2017-07-07 16:58] LABS: BODY FLUID RBC 304 /cu. mm.; BODY FLUID WBC 117 /cu. mm.
[2017-07-07 17:14] LABS: BF LYMPHOCYTE 34 %; BF MONOCYTE 18 %; BF OTHER CELLS 7
== END 2017-07-07 20:00 | DRG 871 ==
LOC: EDH 20:55 → EDHIP 23:00 → 2CH 07-01 09:49 → 3AH 07-04 12:34
PROVIDERS: ADMIT Family Medicine; ATTEND Family Medicine
PROC: 0W9G30Z Drainage of Peritoneal Cavity with Drainage Device, Percutaneous Approach (ICD-10-PCS; principal; 2017-06-30)
DX: A41.9 Sepsis, unspecified organism (principal); K72.00 Acute and subacute hepatic failure without coma; K76.7 Hepatorenal syndrome; N17.0 Acute kidney failure with tubular necrosis; R65.21 Severe sepsis with septic shock; D61.818 Other pancytopenia; I12.0 Hypertensive chronic kidney disease with stage 5 chronic kidney disease or end stage renal disease; N18.6 End stage renal disease; E87.1 Hypo-osmolality and hyponatremia; N17.9 Acute kidney failure, unspecified; E44.0 Moderate protein-calorie malnutrition; E87.2 Acidosis; N39.0 Urinary tract infection, site not specified; D63.1 Anemia in chronic kidney disease; E03.9 Hypothyroidism, unspecified; E11.21 Type 2 diabetes mellitus with diabetic nephropathy; E11.22 Type 2 diabetes mellitus with diabetic chronic kidney disease; E87.70 Fluid overload, unspecified; K70.31 Alcoholic cirrhosis of liver with ascites; K72.10 Chronic hepatic failure without coma; M19.90 Unspecified osteoarthritis, unspecified site; Z16.12 Extended spectrum beta lactamase (ESBL) resistance; Z87.440 Personal history of urinary (tract) infections; Z90.710 Acquired absence of both cervix and uterus; Z68.29 Body mass index [BMI] 29.0-29.9, adult
CPT/HCPCS: 36415; 49083; 71045; 71046; 76770; 80048; 80053; 80305; 81001; 82042; 82140; 82550; 82553; 82570; 82728; 82948; 83540; 83550; 83735; 83935; 84100; 84157; 84300; 84443; 84484; 84550; 85025; 85027; 85610; 85730; 87071; 87076; 87088; 87101; 87116; 87186; 87205; 87206; 88108; 88305; 89051; 93005; 94640; 94664; 97039; A4218; A4357; A6250; C1894; J0696; J1644; J2185; J2405; J3411; J3490; J7030; P9046; P9047

== ENCOUNTER 2017-07-17 05:15 | Inpatient (IN) | payer MEDICARE ==
[~2017-07-17 05:15] MED LIST changes: -CICL34.6 TP; +FOLI1TAB15 PO; +LACT10SO9 PO; +PROP20TA7 PO
[2017-07-17 05:57] LABS: BASOPHILS % (AUTO) 1.2 % (0.0-5.0); EOSINOPHILS % (AUTO) 2.9 % (0.0-8.0); HEMATOCRIT 28.2 % (36-48); LYMPHOCYTES % (AUTO) 10.8 % (21.0-51.0); MEAN CORPUSCULAR HEMOGLOBIN 29.7 pg (27.0-33.0); MEAN CORPUSCULAR VOLUME 90.2 fL (79-99); NEUTROPHILS % (AUTO) 72.1 % (40.0-77.0); PLATELET COUNT (AUTO) 98 K/uL (130-400); RED BLOOD CELL COUNT(AUTO) 3.12 MIL/uL (4.00-5.50); RED CELL DISTRIBUTION WIDTH 18.1 % (11.0-15.5); WHITE BLOOD COUNT (AUTO) 11.2 K/uL (4.8-10.8)
[2017-07-17 06:07] LABS: CREATININE 7.3 mg/dL (0.5-1.5); POTASSIUM 4.3 mmol/L (3.5-5.1)
[2017-07-17 06:09] LABS: INR 1.18 (0.85-1.15); PARTIAL THROMBOPLASTIN TIME 33.3 SEC (26.3-35.5); PROTHROMBIN TIME 12.3 SEC (9.6-11.6)
[2017-07-17 06:11] LABS: ALBUMIN 2.7 g/dL (3.5-5.0); BILIRUBIN,TOTAL 0.9 mg/dL (0.2-1.0); TOTAL PROTEIN, SERUM 6.7 g/dL (6.0-8.3)
[2017-07-17] MEDS ORDERED: NOREPINEPHRINE BITARTRATE 1 MG/1 ML ML IV ONE (12:18)
[2017-07-17] MEDS ORDERED: SODIUM CHLORIDE 0.9% 250 ML IV ONE ×2 (12:19→19:17)
[2017-07-17] MEDS ORDERED: LACTATED RINGERS 1000ML 1,000 ML IV ONE (19:16)
[2017-07-17] MEDS ORDERED: SODIUM BICARB 50MEQ 50ML VIAL ONE (19:16)
[2017-07-17 20:30] VITALS: BP 120/53
[2017-07-17 21:00] VITALS: BP 132/56
[2017-07-17] MEDS ORDERED: NOREPINEPHRINE 4MG/NS 250ML 250 ML IV SCH ×2 (21:15→23:45)
[2017-07-17 22:00] VITALS: BP 119/67
[2017-07-17] MEDS: LACTULOSE 20 GM/30 ML UDCUP PO SCH (22:00)
[2017-07-17 23:00] VITALS: BP 118/43
[2017-07-17] MEDS ORDERED: LACTATED RINGERS 1000ML 1,000 ML IV SCH (23:45)
[2017-07-17] MEDS ORDERED: SODIUM BICARB 8.4% 50ML SYRINGE IVP SCH (23:45)
[2017-07-17] MEDS: METRONIDAZOLE 500MG/100ML BAG 100 ML IVPB SCH (23:47)
[2017-07-18] VITALS (24 sets, daily range): BP systolic 84–120; BP diastolic 32–72
[2017-07-18] MEDS ORDERED: LEVOFLOXACIN 500 MG/D5W 100 ML 100 ML IV SCH
[2017-07-18 03:59] LABS: BASOPHILS % (AUTO) 0.7 % (0.0-5.0); EOSINOPHILS % (AUTO) 3.9 % (0.0-8.0); MEAN CORPUSCULAR HEMOGLOBIN 30.5 pg (27.0-33.0); MEAN CORPUSCULAR HGB CONC 34.2 g/dL (32.0-36.0); MEAN CORPUSCULAR VOLUME 89.2 fL (79-99); MONOCYTES % (AUTO) 10.8 % (3.0-13.0); NEUTROPHILS % (AUTO) 73.6 % (40.0-77.0); PLATELET COUNT (AUTO) 59 K/uL (130-400); RED BLOOD CELL COUNT(AUTO) 3.02 MIL/uL (4.00-5.50); RED CELL DISTRIBUTION WIDTH 17.6 % (11.0-15.5); WHITE BLOOD COUNT (AUTO) 6.1 K/uL (4.8-10.8)
[2017-07-18 04:27] LABS: ALBUMIN 2.7 g/dL (3.5-5.0); POTASSIUM 4.3 mmol/L (3.5-5.1); TOTAL PROTEIN, SERUM 6.6 g/dL (6.0-8.3)
[2017-07-18 04:37] LABS: CREATININE 7.9 mg/dL (0.5-1.5)
[2017-07-18] MEDS: LACTULOSE 20 GM/30 ML UDCUP PO SCH ×3 (06:13→22:07)
[2017-07-18] MEDS: METRONIDAZOLE 500MG/100ML BAG 100 ML IVPB SCH ×2 (07:41→15:52)
[2017-07-18] MEDS: SODIUM CHLORIDE 0.9% 1000ML 1,000 ML IV SCH (11:15)
[2017-07-18] MEDS: PANTOPRAZOLE SODIUM 40 MG TABLET.DR PO SCH (11:19)
[2017-07-18 12:19] LABS: APPEARANCE,URINE Turbid (CLEAR); BILIRUBIN,URINE Negative (NEGATIVE); COLOR,URINE Dark Yellow (YELLOW); GLUCOSE, URINE (UA) Negative (NEGATIVE); KETONES,URINE Negative (NEGATIVE); LEUKOCYTE ESTERASE ,URINE Large (NEGATIVE); NITRATE,URINE Negative (NEGATIVE); OCCULT BLOOD,URINE Moderate (NEGATIVE); PROTEIN,URINE POS 2+ (NEGATIVE); UROBILINOGEN,URINE 0.2 mg/dL (0.2-1.0)
[2017-07-18 12:21] LABS: CREATININE,URINE RANDOM 153 mg/dL (30-135); SODIUM,URINE RANDOM 49 mmol/l (40-220)
[2017-07-18 12:48] LABS: BACTERIA,URINE Many /HPF (None Seen); RBC,URINE None Seen /HPF (0-1); SQUAMOUS EPITHELIAL CELL,UR Few /HPF (0-2); WBC,URINE TNTC /HPF (0-1)
[2017-07-18] MEDS ORDERED: RENAL DOSE IV ONE (14:30)
[2017-07-18] MEDS: MIDODRINE HCL 5 MG TABLET PO SCH ×2 (15:52→22:07)
[2017-07-18] MEDS ORDERED: ONDANSETRON HCL 4 MG/2 ML VIAL ONE (16:08)
[2017-07-18] MEDS ORDERED: ONDANSETRON HCL MDV 20ML 2 MG/ML VIAL IVP PRN (16:15)
[2017-07-18] MEDS: SODIUM BICARBONATE 650 MG TAB PO SCH (22:07)
[2017-07-19] VITALS (15 sets, daily range): BP systolic 81–111; BP diastolic 36–69
[2017-07-19] MEDS: METRONIDAZOLE 500MG/100ML BAG 100 ML IVPB SCH ×3 (00:18→15:27)
[2017-07-19] MEDS: SODIUM CHLORIDE 0.9% 1000ML 1,000 ML IV SCH ×2 (03:00→13:52)
[2017-07-19 03:44] LABS: HEMATOCRIT 23.9 % (36-48); MEAN CORPUSCULAR HEMOGLOBIN 30.8 pg (27.0-33.0); MEAN CORPUSCULAR HGB CONC 34.5 g/dL (32.0-36.0); MEAN CORPUSCULAR VOLUME 89.3 fL (79-99); NUCLEATED RED BLOOD CELLS 0.2 % (0.0-0.19); PLATELET COUNT (AUTO) 63 K/uL (130-400); RED BLOOD CELL COUNT(AUTO) 2.68 MIL/uL (4.00-5.50); RED CELL DISTRIBUTION WIDTH 17.9 % (11.0-15.5); WHITE BLOOD COUNT (AUTO) 5.9 K/uL (4.8-10.8)
[2017-07-19 03:58] LABS: POTASSIUM 4.2 mmol/L (3.5-5.1)
[2017-07-19 04:02] LABS: CREATININE 8.3 mg/dL (0.5-1.5)
[2017-07-19 04:19] LABS: EOSINOPHILS % (MANUAL) 3 % (1-6); LYMPHOCYTES % (MANUAL) 13 % (22-44); MAN.DIFF COMMENT-IMPRESSION MANUAL DIFFERENTIAL; MONOCYTES % (MANUAL) 9 % (2-9); SEGMENTED NEUTROPHILS % 75 % (40-70)
[2017-07-19 04:20] LABS: PLATELET MORPHOLOGY COMMENT DECREASED
[2017-07-19] MEDS: LACTULOSE 20 GM/30 ML UDCUP PO SCH ×3 (06:09→22:10)
[2017-07-19] MEDS: PANTOPRAZOLE SODIUM 40 MG TABLET.DR PO SCH (07:57)
[2017-07-19] MEDS: SODIUM BICARBONATE 650 MG TAB PO SCH ×2 (07:57→22:11)
[2017-07-19] MEDS: MIDODRINE HCL 5 MG TABLET PO SCH ×3 (07:57→22:11)
[2017-07-19] MEDS ORDERED: CEFTRIAXONE 1GM/D5W 50ML 50 ML IV SCH (09:15)
[2017-07-19] MEDS ORDERED: COMPOUND IV MISC 1 EACH IVSOLN MISC PRN (09:45)
[2017-07-19] MEDS ORDERED: COMPOUND IV REFRIGERATED 1 EACH IVSOLN MISC PRN (09:45)
[2017-07-19] MEDS: EPOETIN ALFA 20,000 UNIT/ML VIAL SQ SCH (09:46)
[2017-07-19] MEDS: CEFTRIAXONE SODIUM 1 GM IVP SCH (09:50)
[2017-07-19] MEDS: IRON SUCROSE COMPLEX 100 MG in SODIUM CHLORIDE 0.9% 50 ML IV SCH (09:51)
[2017-07-20] VITALS: BP 102/64
[2017-07-20] MEDS: METRONIDAZOLE 500MG/100ML BAG 100 ML IVPB SCH ×3 (01:04→16:21)
[2017-07-20 04:00] VITALS: BP 100/56
[2017-07-20 05:59] LABS: MEAN CORPUSCULAR HEMOGLOBIN 30.2 pg (27.0-33.0); MEAN CORPUSCULAR HGB CONC 33.8 g/dL (32.0-36.0); MEAN CORPUSCULAR VOLUME 89.3 fL (79-99); NUCLEATED RED BLOOD CELLS 0.1 % (0.0-0.19); PLATELET COUNT (AUTO) 86 K/uL (130-400); RED BLOOD CELL COUNT(AUTO) 3.02 MIL/uL (4.00-5.50); WHITE BLOOD COUNT (AUTO) 5.7 K/uL (4.8-10.8)
[2017-07-20 06:07] LABS: % IRON SATURATION 109.9 % (22-44)
[2017-07-20 06:10] LABS: POTASSIUM 4.3 mmol/L (3.5-5.1)
[2017-07-20 06:12] LABS: CREATININE 8.6 mg/dL (0.5-1.5)
[2017-07-20] MEDS: LACTULOSE 20 GM/30 ML UDCUP PO SCH ×3 (06:59→21:52)
[2017-07-20] MEDS: SODIUM CHLORIDE 0.9% 1000ML 1,000 ML IV SCH (07:04)
[2017-07-20 07:10] LABS: EOSINOPHILS % (MANUAL) 2 % (1-6); LYMPHOCYTES % (MANUAL) 9 % (22-44); MAN.DIFF COMMENT-IMPRESSION MANUAL DIFFERENTIAL; MONOCYTES % (MANUAL) 9 % (2-9); SEGMENTED NEUTROPHILS % 80 % (40-70)
[2017-07-20 07:11] LABS: PLATELET MORPHOLOGY COMMENT DECREASED
[2017-07-20 08:00] VITALS: BP 101/42
[2017-07-20] MEDS: EPOETIN ALFA 20,000 UNIT/ML VIAL SQ SCH (09:15)
[2017-07-20] MEDS: MIDODRINE HCL 5 MG TABLET PO SCH ×3 (10:35→21:52)
[2017-07-20] MEDS: SODIUM BICARBONATE 650 MG TAB PO SCH ×2 (10:35→21:52)
[2017-07-20] MEDS: PANTOPRAZOLE SODIUM 40 MG TABLET.DR PO SCH (10:35)
[2017-07-20] MEDS: IRON SUCROSE COMPLEX 100 MG in SODIUM CHLORIDE 0.9% 50 ML IV SCH (10:36)
[2017-07-20] MEDS: CEFTRIAXONE SODIUM 1 GM IVP SCH (10:36)
[2017-07-20 11:00] VITALS: BP 123/57
[2017-07-20 16:00] VITALS: BP 107/50
[2017-07-20 19:20] VITALS: BP 118/59
[2017-07-21 00:10] VITALS: BP 125/58
== END 2017-07-20 23:00 | disposition hospice, home (50) | DRG 871 ==
LOC: EDH 05:15 → EDHIP 07:51 → OBSVTOIN 07:51 → INTOOBSV 07:51 → 2CH 20:20 → 3BH 07-19 15:40
PROVIDERS: ADMIT Internal Medicine Nephrology; ATTEND Internal Medicine Nephrology
DX: A41.9 Sepsis, unspecified organism (principal); R65.21 Severe sepsis with septic shock; K76.7 Hepatorenal syndrome; K65.9 Peritonitis, unspecified; N17.9 Acute kidney failure, unspecified; E46 Unspecified protein-calorie malnutrition; E87.2 Acidosis; R64 Cachexia; E11.22 Type 2 diabetes mellitus with diabetic chronic kidney disease; R18.8 Other ascites; N39.0 Urinary tract infection, site not specified; D64.9 Anemia, unspecified; K72.90 Hepatic failure, unspecified without coma; K74.60 Unspecified cirrhosis of liver; N18.9 Chronic kidney disease, unspecified; M19.90 Unspecified osteoarthritis, unspecified site; I12.9 Hypertensive chronic kidney disease with stage 1 through stage 4 chronic kidney disease, or unspecified chronic kidney disease; R62.7 Adult failure to thrive; Z51.5 Encounter for palliative care; Z66 Do not resuscitate; Z74.01 Bed confinement status; Z90.710 Acquired absence of both cervix and uterus; Z87.440 Personal history of urinary (tract) infections; Z83.3 Family history of diabetes mellitus; Z82.49 Family history of ischemic heart disease and other diseases of the circulatory system
CPT/HCPCS: 36415; 71045; 76705; 80048; 80053; 81001; 82140; 82150; 82570; 82948; 83540; 83550; 83690; 84300; 84484; 85025; 85610; 85730; 87088; 87186; 93005; A4218; A4344; C9113; J0696; J0885; J1756; J1956; J2405; J3490; J7030; J7120